=== PATIENT | male | born 1955 ===

== ENCOUNTER 2017-10-12 11:56 | Emergency (ER) | payer SELFPAY ==
[2017-10-12 12:20] VITALS: BP 166/102
--- NOTE | 2017-10-12 12:58 | UC ---
Paulo Tobin Angela, scribed for Fifi Gibbons MD on 10/12/17 at 1253 . Lower Extremity/Ankle HPI - HPI Summary HPI Summary: This pt is a 62 y/o male presenting to [facility] c/o left foot pain s/p injury yesterday. 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 He then notes the 30 lbs table landed on the lateral side of his left foot. He took Excedrin this morning with no relief of foot pain. Pt is a current smoker, smokes 1 pack per 1.5 days. Patients medication reviewed this visit. - History of Current Complaint Chief Complaint: UCLowerExtremity Stated Complaint: FOOT INJURY Time Seen by Provider: 10/12/17 12:47 Hx Obtained From: Patient Onset/Duration: Lasting Days - 1, Still Present Severity Currently: Severe Pain Intensity: 8 Pain Scale Used: 0-10 Numeric Aggravating Factor(s): Ambulation Alleviating Factor(s): Rest Able to Bear Weight: Yes Related History: Occupational Injury - Allergies/Home Medications Allergies/Adverse Reactions: Allergies Allergy/AdvReac Type Severity Reaction Status Date / Time No Known Allergies Allergy Verified 10/12/17 12:20 Home Medications: Home Medications [id number] (Nf) [Excedrin Extra Strength 250-250-65 mg (NF)] 2 tab PO BID PRN 10/12/17 [History Confirmed 10/12/17] PMH/Surg Hx/FS Hx/Imm Hx - Additional Past Medical History Additional PMH: PMHx: Rheumatoid arthritis Previously Healthy: Yes Cardiovascular History: Hypertension - Surgical History Surgical History: Yes Surgery Procedure, Year, and Place: elbow repair - Family History Known Family History: Negative: Hypertension, Diabetes Family History: Rheumatoid arthritis - Social History Occupation: Employed Full-time - [employer] Lives: With Family Alcohol Use: Rare Substance Use Type: None Smoking Status (MU): Heavy Every Day Tobacco Smoker Household Exposure Type: Cigarettes - Immunization History Most Recent Tetanus Shot: 6 years ago Review of Systems Constitutional: Negative Skin: Negative Eyes: Negative ENT: Negative Respiratory: Negative Cardiovascular: Negative Gastrointestinal: Negative Genitourinary: Negative Motor: Negative Neurovascular: Negative Musculoskeletal: Other: - left foot pain Neurological: Negative Psychological: Negative All Other Systems Reviewed And Are Negative: Yes Physical Exam Triage Information Reviewed: Yes Appearance: Well-Appearing, No Pain Distress, Well-Nourished Vital Signs: Initial Vital Signs Temp 99.2 F 10/12/17 12:16 Pulse 72 10/12/17 12:16 Resp 20 10/12/17 12:16 BP 166/102 10/12/17 12:16 Pulse Ox 99 10/12/17 12:16 Vital Signs Reviewed: Yes Eye Exam: Normal Eyes: Positive: Conjunctiva Clear ENT Exam: Normal ENT: Positive: Normal ENT inspection, Hearing grossly normal, Pharynx normal, TMs normal Neck exam: Normal Neck: Positive: Supple, Nontender, No Lymphadenopathy Respiratory Exam: Normal Respiratory: Positive: Chest non-tender, Lungs clear, Normal breath sounds, No respiratory distress, No accessory muscle use Cardiovascular Exam: Normal Cardiovascular: Positive: RRR, Other: - 2+ DP, PT Musculoskeletal: Positive: Other: - + flex/ext ankle + TTP mid-metatarsal 3 rd, 4th MT no crepitus Neurological Exam: Normal Neurological: Positive: Alert Psychological Exam: Normal Skin: Positive: Other - no ecchymosis, abraison crepitus Diagnostics - Radiology Left foot XR Xray Interpretation: Positive (See Comments) - IMPRESSION: No acute bony findings. Possible inflammatory arthropathy primarily with fifth MTP joint involvement. Dr. Gibbons has reviewed this radiology report. Radiology Interpretation Completed By: Radiologist Re-Evaluation - Re-Evaluation First Eval Re-Evaluation Time: 13:26 Comment: I reviewed the XR results with the pt. He will be placed in an memo wrap and will be given crutches. Lower Extremity Course/Dx - Course Course Of Treatment: Blood pressure noted and patient informed to follow up with PCP. Pt with pain on 3, 4 MT. no crepitus. will check imaging. if fx, splint. if no fx, memo wrap, crutches. motrin/apap. ice. elevate. work note - Differential Dx/Diagnosis Provider Diagnoses: foot contusion Discharge - Sign-Out/Discharge Documenting (check all that apply): Discharge/Admit/Transfer - discharge - Discharge Plan Condition: Stable Disposition: HOME Patient Education Materials: Foot Contusion (ED) Forms: *Work Release Referrals: No Primary Care Phys,NOPCP [Primary Care Provider] - Bertin Hernandez MD [Medical Doctor] - Additional Instructions: - use crutches until you can walk normally without a limp - wear memo wrap for comfort and support - Okay to alternate ibuprofen (Advil, Motrin) and Tylenol every 3 hours for pain - okay to apply ice (wrapped in a towel) 20 minutes at a time, 2-3 times a day - contact your doctor, to schedule a follow-up appointment next week - Billing Disposition and Condition Condition: STABLE Disposition: HOME The documentation as recorded by the Paulo jamison Angela accurately reflects the service I personally performed and the decisions made by , Fifi Gibbons MD.
--- NOTE | 2017-10-12 13:15 | RAD ---
INDICATION: Left foot injury COMPARISON: None TECHNIQUE: AP, lateral, and oblique views were obtained. FINDINGS: There are no acute bony findings. There is sclerosis and cystic change about the fifth MTP joint which may be related to an inflammatory process which would include but not be limited to gouty arthritis. There is associated soft tissue swelling. There are no other erosive changes. 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 IMPRESSION: NO ACUTE BONY FINDINGS. POSSIBLE INFLAMMATORY ARTHROPATHY PRIMARILY WITH FIFTH MTP JOINT INVOLVEMENT
== END 2017-10-12 13:38 | disposition home or self-care (01) ==
LOC: UCEAST 11:56
DX: S90.32XA Contusion of left foot, initial encounter (principal); W18.09XA Striking against other object with subsequent fall, initial encounter; Y93.E9 Activity, other interior property and clothing maintenance; Y92.214 College as the place of occurrence of the external cause; Y99.0 Civilian activity done for income or pay; M06.9 Rheumatoid arthritis, unspecified; I10 Essential (primary) hypertension; F17.210 Nicotine dependence, cigarettes, uncomplicated
CPT/HCPCS: 99203; G0463